=== PATIENT | female | born 1940 | race American Indian/Alaskan Native ===

== ENCOUNTER 2021-10-21 19:28 | Inpatient (IN) | payer MEDICARE ==
[2021-10-21] MEDS ORDERED: EPINEPHrine 1 MG/1 ML 8 MG in SODIUM CHLORIDE 0.9% 250ML 242 ML IV ONE (19:57)
[2021-10-21] MEDS ORDERED: SODIUM CHLORIDE 0.9% 1000 ML 1,000 ML IV ONE ×2 (20:13→21:29)
--- NOTE | 2021-10-21 20:26 | Emergency Department Report ---
<JESSICA HARPER - Last Filed: 10/21/21 22:33> ED CPR HPI - General Stated Complaint: CARDIAC ARREST Time Seen by Provider: 10/21/21 20:13 - Related Data Home Medications Medication Instructions Recorded Confirmed Last Taken Atenolol 50 mg PO DAILY 04/25/15 04/25/15 05/19/15 Clonidine HCl 0.2 mg PO DAILY 04/25/15 04/25/15 05/19/15 Levothyroxine 50 mg PO DAILY 04/25/15 04/25/15 05/18/15 Pravastatin 40 mg PO DAILY 04/25/15 04/25/15 05/19/15 Valsartan/Hydrochlorothiazide 320 mg PO DAILY 04/25/15 04/25/15 05/19/15 Aspirin [Adult Low Dose Aspirin EC] 1 tab PO DAILY 05/19/15 05/19/15 05/19/15 Previous Rx's Medication Instructions Recorded Last Taken Type Fluticasone [Flonase] 1 spray NS QDAY #1 bottle 08/01/14 05/19/15 Rx Ondansetron [Zofran Odt] 4 mg PO Q6H PRN #15 tab.rapdis 08/01/14 Unknown Rx Allergies Allergy/AdvReac Type Severity Reaction Status Date / Time Penicillins AdvReac BROKE Verified 05/17/14 17:02 MOUTH OUT Sulfa (Sulfonamide AdvReac BROKE Verified 05/17/14 17:02 Antibiotics) MOUTH OUT ED Past Medical Hx - Medications Home Medications: Home Medications Medication Instructions Recorded Confirmed Last Taken Type Fluticasone [Flonase] 1 spray NS QDAY #1 bottle 08/01/14 04/25/15 05/19/15 Rx Ondansetron [Zofran Odt] 4 mg PO Q6H PRN #15 tab.rapdis 08/01/14 04/25/15 Unknown Rx Atenolol 50 mg PO DAILY 04/25/15 04/25/15 05/19/15 History Clonidine HCl 0.2 mg PO DAILY 04/25/15 04/25/15 05/19/15 History Levothyroxine 50 mg PO DAILY 04/25/15 04/25/15 05/18/15 History Pravastatin 40 mg PO DAILY 04/25/15 04/25/15 05/19/15 History Valsartan/Hydrochlorothiazide 320 mg PO DAILY 04/25/15 04/25/15 05/19/15 History Aspirin [Adult Low Dose Aspirin EC] 1 tab PO DAILY 05/19/15 05/19/15 05/19/15 History ED Medical Decision Making - Lab Data Result diagrams: 10/21/21 20:26 10/21/21 20:26 ED Disposition Clinical Impression: Cardiac arrest Bilateral pneumonia Qualifiers: Pneumonia type: due to unspecified organism Lung location: lower lobe of lung Qualified Code(s): J18.9 - Pneumonia, unspecified organism Disposition: ADMITTED INPATIENT Is pt being admited?: Yes Does the pt Need Aspirin: No Time of Disposition: 22:34 (Care transferred to hospitalist (Dr. Painting)) <TOMASA PETTY - Last Filed: 10/27/21 01:39> ED CPR HPI - General Source: family, police, EMS, old records reviewed Mode of arrival: Stretcher Limitations: Other (cardiac arrest) - History of Present Illness Initial Comments: 81 yo female with history of diabetes, [place], bronchitis, and metabolic acidosis presents in cardiac arrest with EMS. The rest happened approximately 30 minutes prior to arrival. According to the family, patient had been having nausea and vomiting since 11 AM, but denied any pain. At approximately 6 PM, patient collapsed. Upon EMS arrival, the patient was found to be in PEA arrest. Prior to arrival to the emergency department, the patient received 2 shocks, 3 doses of epinephrine, was intubated, and CPR initiated continued. Upon arrival, patient is in asystolic arrest, and ALS was continued, here. ED Review of Systems ROS: Stated complaint: CARDIAC ARREST Other details as noted in HPI Comment: Unobtainable due to pts medical conditions (cardiac arrest, ROSC was obtained from EMS, police and patient family) Constitutional: other (became unresponsive) ENT: denies: throat pain, congestion Cardiovascular: denies: chest pain Endocrine: no symptoms reported Gastrointestinal: nausea, vomiting Neurological: other (unresponsive) ED Past Medical Hx - Past Medical History Hx Hypertension: Yes (20yrs) Hx Arthritis: Yes Additional medical history: THYROID - Surgical History Additional Surgical History: HYSTERECTOMY. THYROID SURGERY - Social History Smoking Status: Never Smoker Substance Use Type: Prescribed, Other ED Physical Exam - General General appearance: obese, other (unresponsive) - Head Head exam: Present: atraumatic - Eye Eye exam: Present: other (fixed and dilate) - Neck Neck exam: Present: normal inspection, other (unable to fully assess) - Respiratory Respiratory exam: Present: other (patient intubated with a 6.5 et tubes, lungs sounds present r>l) - Cardiovascular Cardiovascular Exam: Present: other (pulseless, asystolic) - GI/Abdominal GI/Abdominal exam: Present: soft, other (unable to fully assess) - Extremities Exam Extremities exam: Present: pedal edema - Neurological Exam Neurological exam: Present: other (unable to fully assess) - Psychiatric Psychiatric exam: Present: other (unable to fully assess) ED Course Vital Signs 10/21/21 10/21/21 10/21/21 20:00 20:30 20:45 Pulse Rate 79 61 65 Respiratory 20 20 Rate Blood Pressure 85/47 62/31 O2 Sat by Pulse 100 99 99 Oximetry 10/21/21 10/21/21 10/21/21 20:55 21:00 21:15 Pulse Rate 66 66 64 Respiratory 7 L 7 L 7 L Rate Blood Pressure 66/33 69/35 82/39 O2 Sat by Pulse 100 100 100 Oximetry 10/21/21 10/21/21 10/21/21 21:30 21:32 21:45 Pulse Rate 65 66 Respiratory 20 20 Rate Blood Pressure 95/46 103/52 O2 Sat by Pulse 99 100 99 Oximetry 10/21/21 10/21/21 10/21/21 22:00 22:23 22:30 Pulse Rate 68 79 72 Respiratory 20 8 L 14 Rate Blood Pressure 100/50 98/52 110/60 O2 Sat by Pulse 99 97 98 Oximetry 10/21/21 10/21/21 10/21/21 22:45 23:00 23:15 Pulse Rate 74 76 76 Respiratory 20 21 20 Rate Blood Pressure 105/58 109/59 107/58 O2 Sat by Pulse 98 98 98 Oximetry 10/21/21 10/21/21 10/22/21 23:30 23:45 00:00 Pulse Rate 77 78 77 Respiratory 18 20 20 Rate Blood Pressure 109/58 108/62 112/65 O2 Sat by Pulse 96 96 96 Oximetry 10/22/21 10/22/21 10/22/21 00:04 00:15 00:30 Pulse Rate 77 83 80 Respiratory 21 20 Rate Blood Pressure 112/65 114/67 118/66 O2 Sat by Pulse 97 94 96 Oximetry 10/22/21 10/22/21 10/22/21 00:45 01:00 01:15 Pulse Rate 82 83 83 Respiratory 20 21 20 Rate Blood Pressure 117/66 116/67 104/58 O2 Sat by Pulse 96 97 97 Oximetry 10/22/21 01:30 Pulse Rate 82 Respiratory 19 Rate Blood Pressure 101/63 O2 Sat by Pulse 97 Oximetry - Reevaluation(s) Reevaluation #1: 10/21/21 21:12 approximately 5 minutes into the emergency department resuscitation, and after 1 round of epinephrine and sodium bicarb patient was noted to have return of circulation. However, her blood pressure was low, so I put in a emergent central line. Patient is not breathing on her own, but is maintaining a pulse, is on an epinephrine drip, and has a systolic blood pressure above 90. - Central Line Placement Right Femoral Consent Obtained: emergent situation Time Out Performed: Yes MD Prep: mask, gown, gloves Central Line Prep: Chlorhexidine scrub, sterile drapes applied Ultrasound Used for Placement: Yes Central Line Lumen Inserted: triple Reason for Insertion: Volume Resuscitation Bloods Obtained for Lab: Yes Central Line Position: good blood return, all ports aspirated, flus, sutured in place with 2-0 Dressing Applied: Tegaderm, sterile gauze/tape Patient Tolerated Procedure: well Complications: none ED Medical Decision Making - Lab Data Result diagrams: 10/22/21 12:30 10/22/21 03:39 Critical Care Time: Yes Critical care time in (mins) excluding proc time.: 40 Critical care attestation.: If time is entered above; I have spent that time in minutes in the direct care of this critically ill patient, excluding procedure time.
[2021-10-21 20:45] LABS: Basophils % (Auto) TNR % (0.0-1.8); Eosinophils % (Auto) TNR % (0.0-4.3); Hematocrit TNR % (30.3-42.9); Hemoglobin TNR gm/dl (10.1-14.3); Lymphocytes % (Auto) TNR % (13.4-35.0); Mean Corpuscular HGB Conc TNR % (30-34); Mean Corpuscular Volume TNR fl (79-97); Mean Platelet Volume TNR fl (6-12); Monocytes % (Auto) TNR % (0.0-7.3); Platelet Count TNR K/mm3 (140-440); Red Blood Count TNR M/mm3 (3.65-5.03); Red Cell Distribution Width TNR % (13.2-15.2)
[2021-10-21 20:46] LABS: Basophils # (Auto) TNR K/mm3 (0.0-0.1); Eosinophils # (Auto) TNR K/mm3 (0.0-0.4); Lymphocytes # (Auto) TNR K/mm3 (1.2-5.4); Monocytes # (Auto) TNR K/mm3 (0.0-0.8); Total Cells Counted TNR
[2021-10-21 20:47] LABS: Band Neutrophils # (Manual) TNR K/mm3; Basophils % (Manual) TNR % (0.0-1.8); Eosinophils % (Manual) TNR % (0.0-4.3); Hypersegmented Polys TNR; Monocytes % (Manual) TNR % (0.0-7.3); Myelocytes # (Manual) TNR K/mm3; Promyelocytes # (Manual) TNR K/mm3
--- NOTE | 2021-10-21 20:47 | XRay Report ---
CHEST 1 VIEW 10/21/2021 8:30 PM INDICATION / CLINICAL INFORMATION: Altered Mental Status. COMPARISON: One view of the chest from 05/19/2015. FINDINGS: SUPPORT DEVICES: An ET tube terminates 4.3 cm above the gracie. HEART / MEDIASTINUM: The cardiac silhouette is mildly enlarged. LUNGS / PLEURA: Airspace opacities are seen throughout the right lung as well as along the upper left lung. No significant pleural effusion. No pneumothorax. ADDITIONAL FINDINGS: No significant additional findings. IMPRESSION: 1. Suspected bilateral pneumonia. 2. Mild cardiomegaly. 3. Satisfactory positioning of ET tube. Signer Name: Kel Hair MD Signed: 10/21/2021 8:42 PM Workstation Name: [id number]
[2021-10-21 20:48] LABS: Anisocytosis TNR; Basophilic Stippling TNR; Bite Cells TNR; Burr Cells TNR; Cabot Rings TNR; Dimorphic RBC TNR; Dohle Bodies TNR; Giant Platelets TNR; Helmet Cells TNR; Hgb C Crystals TNR; Howell-Jolly Bodies TNR; Hypersegmented Neutrophils TNR; Hypochromasia TNR; Large Platelets TNR; Macrocytosis TNR; Nucleated Red Blood Cells TNR % (0.0-0.9); Ovalocytes TNR; Pappenheimer Bodies TNR; Platelet Clumps TNR; Platelet Estimate TNR; Platelet Morphology TNR; Platelet Satelitosis TNR; Poikilocytosis TNR; RBC Morphology TNR; Schistocytes TNR; Sickle Cells TNR; Smudge Cells TNR; Spherocytes TNR; Stomatocytes TNR; Target Cells TNR; Tear Drop Cells TNR; Toxic Granulation TNR; Toxic Vacuolation TNR
[2021-10-21 20:49] LABS: Auer Rods TNR; Crenated RBC TNR; Rouleaux TNR
[2021-10-21 21:01] LABS: Albumin 2.9 g/dL (3.9-5); Calcium 8.4 mg/dL (8.4-10.2)
[2021-10-21 21:12] LABS: Hematocrit 30.5 % (30.3-42.9); Mean Corpuscular HGB Conc 33 % (30-34); Mean Corpuscular Volume 83 fl (79-97); Red Blood Count 3.69 M/mm3 (3.65-5.03)
[2021-10-21 21:17] LABS: ABG Base Excess -2.1 mmol/L (-2.0-3.0); ABG HCO3 22.5 mmol/L (20.0-26.0); ABG Methemoglobin 0.4 % (0.0-1.5); ABG Oxygen Saturation 99.1 % (95.0-99.0); ABG PCO2 37.7 mm Hg; ABG PH 7.393 pH Units (7.350-7.450); ABG PO2 172.2 mm Hg (80.0-90.0)
[2021-10-21 21:23] LABS: Platelet Count 280 K/mm3 (140-440)
[2021-10-21] MEDS ORDERED: MIDAZOLAM 2 MG/2 ML INJ IV PRN (21:24)
[2021-10-21 21:26] LABS: INR 0.95 (0.87-1.13)
[2021-10-21] MEDS ORDERED: CLINDAMYCIN 600 MG/50 mL 600 MG/50 ML BAG IV ONE (21:29)
[2021-10-21] MEDS ORDERED: cefTRIAXone/NS 1 GM/50 ML 1 GM/50 ML BAG IV ONE (21:29)
[2021-10-21] MEDS ORDERED: metroNIDAZOLE/NS 500 MG/100 ML 500 MG/100 ML BAG IV ONE (21:33)
[2021-10-21 21:59] LABS: Partial Thromboplastin Time 23.6 Sec. (24.2-36.6)
[2021-10-21] MEDS ORDERED: MIDAZOLAM/NS Drip 100mg/100ml 100 MG/100 ML BAG IV SCH (22:00)
[2021-10-21 22:02] LABS: Anisocytosis 1+; Band Neutrophils # (Manual) 0.4 K/mm3; Basophils % (Manual) 0 % (0.0-1.8); Eosinophils % (Manual) 0 % (0.0-4.3); Hypochromasia 1+; Platelet Estimate Consistent w Auto; Total Cells Counted 100
[2021-10-21 22:17] LABS: Chol/HDL Ratio 4.13 %
--- NOTE | 2021-10-21 22:28 | Cat Scan Report ---
CT ABDOMEN WITHOUT CONTRAST INDICATION / CLINICAL INFORMATION: vomiting prior to cardiac arrest. TECHNIQUE: Axial CT images were obtained through the abdomen without contrast. All CT scans at this [facility] emergency department are performed using CT dose reduction for ALARA by means of automated exposure control. COMPARISON: None available. FINDINGS: LOWER CHEST: Areas of consolidation are seen bilaterally along the lower lobes with ground glass opac ities also seen along the right middle lobe. No other significant abnormality. LIVER: No significant abnormality. GALLBLADDER: No significant abnormality. BILE DUCTS: No significant abnormality. PANCREAS: No significant abnormality. SPLEEN: No significant abnormality. ADRENALS: There is an indeterminate hypodense left adrenal nodule measuring up to 1.5 cm area of no s ignificant abnormality of the right adrenal gland. RIGHT KIDNEY / URETER: No significant abnormality. LEFT KIDNEY / URETER: A posterior upper pole left renal hypodensity, possibly representing a cyst, me asures 1.9 cm. Another probable cyst is seen along the lower pole. No other significant abnormality. STOMACH / SMALL BOWEL: No significant abnormality. COLON: No significant abnormality. APPENDIX: Not seen. PERITONEUM: No free fluid. No free air. No fluid collection. LYMPH NODES: No significant adenopathy. AORTA / ARTERIES: There is moderate generalized atherosclerosis without other significant abnormaliti es. IVC / VEINS: No significant abnormality. ADDITIONAL FINDINGS: None. SKELETAL SYSTEM: No acute findings. There is mild spondylosis. IMPRESSION: 1. Suspected bilateral pneumonia without other acute findings. 2. Indeterminate left adrenal nodule may be further evaluated by a CT abdomen with and without contra st (adrenal protocol) or an MR abdomen without contrast when the patient's clinical condition allows. 3. Additional findings as above. Signer Name: Kel Hair MD Signed: 10/21/2021 10:24 PM Workstation Name: [id number]
--- NOTE | 2021-10-21 22:29 | Cat Scan Report ---
CT HEAD WITHOUT CONTRAST INDICATION / CLINICAL INFORMATION: Altered Mental Status. TECHNIQUE: All CT scans at this location are performed using CT dose reduction for ALARA by means of automated exposure control. COMPARISON: None available. FINDINGS: BRAIN PARENCHYMA: No acute intracranial hemorrhage. No evidence of recent infarct. No mass effect or midline shift. VENTRICULAR SYSTEM/EXTRA-AXIAL SPACES: Ventricles are normal for age. No extra-axial fluid collection . ORBITS: Normal as visualized. SKELETAL SYSTEM/SOFT TISSUES: Normal bones and soft tissues. PARANASAL SINUSES/MASTOID AIR CELLS: No significant abnormality. ADDITIONAL FINDINGS: None. IMPRESSION: 1. No acute intracranial abnormality. Signer Name: Kel Hair MD Signed: 10/21/2021 10:25 PM Workstation Name: [id number]
[2021-10-21] MEDS ORDERED: traMADol 50 MG TAB PO PRN (22:57)
[2021-10-21] MEDS ORDERED: MORPHINE 4 MG/1 ML INJ IV PRN (22:57)
[2021-10-21] MEDS ORDERED: MORPHINE 2 MG/1 ML INJ IV PRN (22:57)
[2021-10-21] MEDS ORDERED: ONDANSETRON 4 MG/2 ML INJ IV PRN (22:57)
[2021-10-21] MEDS ORDERED: NITROGLYCERIN 0.4 MG TAB SUBL SL PRN (22:57)
[2021-10-21] MEDS ORDERED: ACETAMINOPHEN 325 MG TAB PO PRN ×2 (22:57)
--- NOTE | 2021-10-21 23:09 | History and Physical Report ---
History of Present Illness Date of examination: 10/21/21 Date of admission: 10/21/21 Chief complaint: Cardiac arrest History of present illness: 81 yo female with history of diabetes, [place], bronchitis, and metabolic acidosis presents in cardiac arrest with EMS. The rest happened approximately 30 minutes prior to arrival. According to the family, patient had been having nausea and vomiting since 11 AM, but denied any pain. At approximately 6 PM, patient collapsed. Upon EMS arrival, the patient was found to be in PEA arrest. Prior to arrival to the emergency department, the patient received 2 shocks, 3 doses of epinephrine, was intubated, and CPR initiated continued. Upon arrival, patient is in asystolic arrest, and ALS was continued, here,approximately 5 minutes into the emergency department resuscitation, and after 1 round of epinephrine and sodium bicarb patient was noted to have return of circulation. In the emergency room patient is found to have lactic acid of 8.60, troponin of 0.201, WBCs 19.0 and chest x-ray shows bilateral pneumonia Past History Past Medical History: arthritis, hypertension, other (Thyroid) Past Surgical History: Other (HYSTERECTOMY. THYROID SURGERY) Social history: no significant social history Family history: hypertension Medications and Allergies Allergies Allergy/AdvReac Type Severity Reaction Status Date / Time Penicillins AdvReac BROKE Verified 05/17/14 17:02 MOUTH OUT Sulfa (Sulfonamide AdvReac BROKE Verified 05/17/14 17:02 Antibiotics) MOUTH OUT Home Medications Medication Instructions Recorded Confirmed Last Taken Type Fluticasone [Flonase] 1 spray NS QDAY #1 bottle 08/01/14 04/25/15 05/19/15 Rx Ondansetron [Zofran Odt] 4 mg PO Q6H PRN #15 tab.rapdis 08/01/14 04/25/15 Unknown Rx Atenolol 50 mg PO DAILY 04/25/15 04/25/15 05/19/15 History Clonidine HCl 0.2 mg PO DAILY 04/25/15 04/25/15 05/19/15 History Levothyroxine 50 mg PO DAILY 04/25/15 04/25/15 05/18/15 History Pravastatin 40 mg PO DAILY 04/25/15 04/25/15 05/19/15 History Valsartan/Hydrochlorothiazide 320 mg PO DAILY 04/25/15 04/25/15 05/19/15 History Aspirin [Adult Low Dose Aspirin EC] 1 tab PO DAILY 05/19/15 05/19/15 05/19/15 History Active Meds: Active Medications Acetaminophen (Acetaminophen 325 Mg Tab) 650 mg PO Q4H PRN PRN Reason: Pain MILD(1-3)/Fever >100.5/[place] Acetaminophen (Acetaminophen 325 Mg Tab) 650 mg PO Q6H PRN PRN Reason: Pain, Mild (1-3) Aspirin (Aspirin Ec 81 Mg Tab) mg PO DAILY [facility] Atorvastatin Calcium (Atorvastatin 40 Mg Tab) 40 mg PO QHS [facility] Famotidine (Famotidine 20 Mg/2 Ml Inj) 20 mg IV BID [facility] Fluticasone Propionate (Fluticasone Propionate Nasal [place] 16 Gm) 50 mcg NS QDAY MATT Epinephrine 8 mg/ Sodium (Chloride) 250 mls @ 3.75 mls/hr IV TITR ONE; Protocol Stop: 10/24/21 14:36 Last Admin: 10/21/21 20:59 Dose: 5 mcg/min, 9.375 mls/hr MIDAZOLAM/NS Drip 100mg/100ml (Midazolam/Ns Drip 100mg/100ml) 100 mg in 100 mls @ 1 mls/hr IV TITR MATT; Protocol Sodium Chloride (Nacl 0.9% 1000 Ml) 1,000 mls @ 100 mls/hr IV DIRECT MATT Levofloxacin/Dextrose (Levaquin 750mg/150ml) 750 mg in 150 mls @ 100 mls/hr IV Q24H MATT; Protocol Midazolam HCl (Midazolam 2 Mg/2 Ml Inj) 2 mg IV Q10MIN PRN PRN Reason: Sedation Miscellaneous Medication (Atenolol) 50 mg PO DAILY [facility] Miscellaneous Medication (Levothyroxine) 50 mg PO DAILY [facility] Miscellaneous Medication (Valsartan/Hydrochlorothiazide) 320 mg PO DAILY [facility] Morphine Sulfate (Morphine 2 Mg/1 Ml Inj) 2 mg IV Q4H PRN PRN Reason: Pain, Moderate (4-6) Morphine Sulfate (Morphine 4 Mg/1 Ml Inj) 4 mg IV Q4H PRN PRN Reason: Pain , Severe (7-10) Nitroglycerin (Nitroglycerin 0.4 Mg Tab Subl) 0.4 mg SL Q5M PRN PRN Reason: Chest Pain Ondansetron HCl (Ondansetron 4 Mg/2 Ml Inj) 4 mg IV Q8H PRN PRN Reason: Nausea And Vomiting Sodium Chloride (Sodium Chloride 0.9% 10 Ml Flush Syringe) 10 ml IV BID MATT Sodium Chloride (Sodium Chloride 0.9% 10 Ml Flush Syringe) 10 ml IV PRN PRN PRN Reason: LINE FLUSH Sodium Chloride (Sodium Chloride 0.9% 10 Ml Flush Syringe) 10 ml IV PRN PRN PRN Reason: LINE FLUSH Tramadol HCl (Tramadol 50 Mg Tab) 50 mg PO Q6H PRN PRN Reason: Pain, Moderate (4-6) Review of Systems All systems: negative Constitutional: other (Cardiac arrest) Exam - Constitutional Vitals: Temp Pulse Resp BP Pulse Ox 65 20 62/31 100 10/21/21 20:45 10/21/21 20:45 10/21/21 20:45 10/21/21 21:32 General appearance: Present: severe distress, well-nourished - EENT Eyes: Present: PERRL ENT: hearing intact, clear oral mucosa - Neck Neck: Present: supple, normal ROM - Respiratory Respiratory effort: normal Respiratory: bilateral: CTA - Cardiovascular Heart Sounds: Present: S1 & S2. Absent: rub, click - Extremities Extremities: pulses symmetrical, No edema Peripheral Pulses: within normal limits - Abdominal General gastrointestinal: Present: soft, non-tender, non-distended, normal bowel sounds Female genitourinary: Present: normal - Integumentary Integumentary: Present: clear, warm, dry - Musculoskeletal Musculoskeletal: gait normal, strength equal bilaterally - Psychiatric Psychiatric: appropriate mood/affect, intact judgment & insight - Neurologic Neurologic: CNII-XII intact, moves all extremities HEART Score - HEART Score Troponin: Troponin T 0.201 ng/mL (0.00-0.029) H* 10/21/21 20:26 Results - Labs CBC & Chem 7: 10/21/21 20:26 10/21/21 20:26 Labs: Laboratory Last Values WBC 19.0 K/mm3 (4.5-11.0) H 10/21/21 20:26 WBC TNR 10/21/21 20:26 RBC 3.69 M/mm3 (3.65-5.03) 10/21/21 20:26 RBC TNR 10/21/21 20:26 Hgb 10.0 gm/dl (10.1-14.3) L 10/21/21 20:26 Hgb TNR 10/21/21 20:26 Hct 30.5 % (30.3-42.9) 10/21/21 20:26 Hct TNR 10/21/21 20:26 MCV 83 fl (79-97) 10/21/21 20:26 MCV TNR 10/21/21 20:26 MCH 27 pg (28-32) L 10/21/21 20:26 MCH TNR 10/21/21 20:26 MCHC 33 % (30-34) 10/21/21 20:26 MCHC TNR 10/21/21 20:26 RDW 16.0 % (13.2-15.2) H 10/21/21 20:26 RDW TNR 10/21/21 20:26 Plt Count 280 K/mm3 (140-440) 10/21/21 20:26 Plt Count TNR 10/21/21 20:26 Lymph % (Auto) TNR 10/21/21 20:26 [place] % (Auto) TNR 10/21/21 20:26 Eos % (Auto) TNR 10/21/21 20:26 Baso % (Auto) TNR 10/21/21 20:26 Lymph # (Auto) TNR 10/21/21 20:26 [place] # (Auto) TNR 10/21/21 20:26 Eos # (Auto) TNR 10/21/21 20:26 Baso # (Auto) TNR 10/21/21 20:26 Add Manual Diff Complete 10/21/21 20:26 Add Manual Diff Complete 10/21/21 20:26 Total Counted 100 10/21/21 20:26 Total Counted TNR 10/21/21 20:26 Seg Neutrophils % Boring Machine Feeder 10/21/21 20:26 Seg Neutrophils % TNR 10/21/21 20:26 Seg Neuts % (Manual) 93.0 % (40.0-70.0) H 10/21/21 20:26 Seg Neuts % (Manual) TNR 10/21/21 20:26 Band Neutrophils % 2.0 % 10/21/21 20:26 Band Neutrophils % TNR 10/21/21 20:26 Lymphocytes % (Manual) 3.0 % (13.4-35.0) L 10/21/21 20:26 Lymphocytes % (Manual) TNR 10/21/21 20:26 Reactive Lymphs % (Man) 0 % 10/21/21 20: Reactive Lymphs % (Man) TNR 10/21/21 20:26 Monocytes % (Manual) 2.0 % (0.0-7.3) 10/21/21 20: Monocytes % (Manual) TNR 10/21/21 20:26 Eosinophils % (Manual) 0 % (0.0-4.3) 10/21/21 20:26 Eosinophils % (Manual) TNR 10/21/21 20:26 Basophils % (Manual) 0 % (0.0-1.8) 10/21/21 20: Basophils % (Manual) TNR 10/21/21 20:26 Metamyelocytes % 0 % 10/21/21 20: Metamyelocytes % TNR 10/21/21 20: Myelocytes % 0 % 10/21/21 20: Myelocytes % TNR 10/21/21 20:26 Promyelocytes % 0 % 10/21/21 20:26 Promyelocytes % TNR 10/21/21 20:26 Blast Cells % 0 % 10/21/21 20: Blast Cells % TNR 10/21/21 20:26 Nucleated RBC % Not Reportable 10/21/21 20:26 Nucleated RBC % TNR 10/21/21 20:26 Seg Neutrophils # TNR 10/21/21 20:26 Seg Neutrophils # Man 17.7 K/mm3 (1.8-7.7) H 10/21/21 20:26 Seg Neutrophils # Man TNR 10/21/21 20:26 Band Neutrophils # 0.4 K/mm3 10/21/21 20:26 Band Neutrophils # TNR 10/21/21 20:26 Lymphocytes # (Manual) 0.6 K/mm3 (1.2-5.4) L 10/21/21 20: Lymphocytes # (Manual) TNR 10/21/21 20:26 Abs React Lymphs (Man) 0.0 K/mm3 10/21/21 20: Abs React Lymphs (Man) TNR 10/21/21 20:26 Monocytes # (Manual) 0.4 K/mm3 (0.0-0.8) 10/21/21 20:26 Monocytes # (Manual) TNR 10/21/21 20:26 Eosinophils # (Manual) 0.0 K/mm3 (0.0-0.4) 10/21/21 20:26 Eosinophils # (Manual) TNR 10/21/21 20:26 Basophils # (Manual) 0.0 K/mm3 (0.0-0.1) 10/21/21 20:26 Basophils # (Manual) TNR 10/21/21 20:26 Metamyelocytes # 0.0 K/mm3 10/21/21 20:26 Metamyelocytes # TNR 10/21/21 20:26 Myelocytes # 0.0 K/mm3 10/21/21 20:26 Myelocytes # TNR 10/21/21 20:26 Promyelocytes # 0.0 K/mm3 10/21/21 20:26 Promyelocytes # TNR 10/21/21 20:26 Blast Cells # 0.0 K/mm3 10/21/21 20:26 Blast Cells # TNR 10/21/21 20:26 WBC Morphology Not Reportable 10/21/21 20:26 WBC Morphology TNR 10/21/21 20:26 Hypersegmented Neuts Not Reportable 10/21/21 20:26 Hypersegmented Neuts TNR 10/21/21 20:26 Hyposegmented Neuts Not Reportable 10/21/21 20:26 Hyposegmented Neuts TNR 10/21/21 20:26 Hypogranular Neuts Not Reportable 10/21/21 20:26 Hypogranular Neuts TNR 10/21/21 20:26 Hypersegmented Polys TNR 10/21/21 20:26 Smudge Cells Not Reportable 10/21/21 20:26 Smudge Cells TNR 10/21/21 20:26 Toxic Granulation Not Reportable 10/21/21 20:26 Toxic Granulation TNR 10/21/21 20:26 Toxic Vacuolation Not Reportable 10/21/21 20:26 Toxic Vacuolation TNR 10/21/21 20:26 Dohle Bodies Not Reportable 10/21/21 20:26 Dohle Bodies TNR 10/21/21 20:26 Pelger-Huet Anomaly Not Reportable 10/21/21 20:26 Pelger-Huet Anomaly TNR 10/21/21 20:26 Lilliam Rods Not Reportable 10/21/21 20:26 Lilliam Rods TNR 10/21/21 20:26 Platelet Estimate Consistent w auto 10/21/21 20:26 Platelet Estimate TNR 10/21/21 20:26 Clumped Platelets Not Reportable 10/21/21 20:26 Clumped Platelets TNR 10/21/21 20:26 Plt Clumps, EDTA Not Reportable 10/21/21 20:26 Plt Clumps, EDTA TNR 10/21/21 20:26 Large Platelets Not Reportable 10/21/21 20:26 Large Platelets TNR 10/21/21 20:26 Giant Platelets Not Reportable 10/21/21 20:26 Giant Platelets TNR 10/21/21 20:26 Platelet Satelliting Not Reportable 10/21/21 20:26 Platelet Satelliting TNR 10/21/21 20:26 Plt Morphology Comment Not Reportable 10/21/21 20:26 Plt Morphology Comment TNR 10/21/21 20:26 RBC Morphology Not Reportable 10/21/21 20:26 RBC Morphology TNR 10/21/21 20:26 Dimorphic RBCs Not Reportable 10/21/21 20:26 Dimorphic RBCs TNR 10/21/21 20:26 Polychromasia Not Reportable 10/21/21 20:26 Polychromasia TNR 10/21/21 20:26 Hypochromasia 1+ 10/21/21 20:26 Hypochromasia TNR 10/21/21 20:26 Poikilocytosis Not Reportable 10/21/21 20:26 Poikilocytosis TNR 10/21/21 20:26 Basophilic Stippling TNR 10/21/21 20:26 Anisocytosis 1+ 10/21/21 20:26 Anisocytosis TNR 10/21/21 20:26 Microcytosis 1+ 10/21/21 20:26 Microcytosis TNR 10/21/21 20:26 Macrocytosis Not Reportable 10/21/21 20:26 Macrocytosis TNR 10/21/21 20:26 Spherocytes Not Reportable 10/21/21 20:26 Spherocytes TNR 10/21/21 20:26 Pappenheimer Bodies Not Reportable 10/21/21 20:26 Pappenheimer Bodies TNR 10/21/21 20:26 Sickle Cells Not Reportable 10/21/21 20:26 Sickle Cells TNR 10/21/21 20:26 Target Cells Not Reportable 10/21/21 20:26 Target Cells TNR 10/21/21 20:26 Tear Drop Cells Not Reportable 10/21/21 20:26 Tear Drop Cells TNR 10/21/21 20:26 Ovalocytes Not Reportable 10/21/21 20:26 Ovalocytes TNR 10/21/21 20:26 Stomatocytes TNR 10/21/21 20:26 Helmet Cells Not Reportable 10/21/21 20:26 Helmet Cells TNR 10/21/21 20:26 [place] Bodies Not Reportable 10/21/21 20:26 [place] Bodies TNR 10/21/21 20:26 [place] Rings Not Reportable 10/21/21 20:26 [place] Rings TNR 10/21/21 20:26 Jack Cells Not Reportable 10/21/21 20:26 Jack Cells TNR 10/21/21 20:26 Bite Cells Not Reportable 10/21/21 20:26 Bite Cells TNR 10/21/21 20:26 Crenated Cell Not Reportable 10/21/21 20:26 Crenated Cell TNR 10/21/21 20:26 Elliptocytes Not Reportable 10/21/21 20:26 Elliptocytes TNR 10/21/21 20:26 Acanthocytes (Spur) Not Reportable 10/21/21 20:26 Acanthocytes (Spur) TNR 10/21/21 20:26 Rouleaux Not Reportable 10/21/21 20:26 Rouleaux TNR 10/21/21 20:26 Hemoglobin C Crystals Not Reportable 10/21/21 20:26 Hemoglobin C Crystals TNR 10/21/21 20:26 Schistocytes Not Reportable 10/21/21 20:26 Schistocytes TNR 10/21/21 20:26 Malaria parasites Not Reportable 10/21/21 20:26 Malaria parasites TNR 10/21/21 20:26 Mario Bodies Not Reportable 10/21/21 20:26 Mario Bodies TNR 10/21/21 20:26 Hem Pathologist Commnt No 10/21/21 20: Hem Pathologist Commnt TNR 10/21/21 20: PT 14.0 Sec. (12.2-14.9) 10/21/21 20: INR 0.95 (0.87-1.13) 10/21/21 20: APTT 23.6 Sec. (24.2-36.6) L 10/21/21 20:26 ABG pH 7.393 pH Units (7.350-7.450) 10/21/21 21:00 ABG pCO2 37.7 mm Hg 10/21/21 21:00 ABG pO2 172.2 mm Hg (80.0-90.0) H 10/21/21 21:00 ABG HCO3 22.5 mmol/L (20.0-26.0) 10/21/21 21:00 ABG O2 Saturation 99.1 % (95.0-99.0) H 10/21/21 21:00 ABG O2 Content 14.3 (0.0-44) 10/21/21 21:00 ABG Base Excess -2.1 mmol/L (-2.0-3.0) L 10/21/21 21:00 ABG Hemoglobin 10.2 gm/dl (12.0-16.0) L 10/21/21 21:00 ABG Carboxyhemoglobin 1.3 % (0.0-5.0) 10/21/21 21:00 ABG Methemoglobin 0.4 % (0.0-1.5) 10/21/21 21:00 Oxyhemoglobin 97.4 % (95.0-99.0) 10/21/21 21:00 FiO2 100 % 10/21/21 21:00 Sodium 148 mmol/L (137-145) H 10/21/21 20: Potassium 4.3 mmol/L (3.6-5.0) 10/21/21 20: Chloride 101.3 mmol/L (98-107) 10/21/21 20: Carbon Dioxide 18 mmol/L (22-30) L 10/21/21: Anion Gap 33 mmol/L 10/21/21 20: BUN 15 mg/dL (7-17) 10/21/21 20: Creatinine 1.5 mg/dL (0.6-1.2) H 10/21/21 20:26 Estimated GFR 40 ml/min 10/21/21 20:26 BUN/Creatinine Ratio 10 % 10/21/21 20:26 Glucose 310 mg/dL (65-100) H 10/21/21 20:26 Lactic Acid 8.60 mmol/L (0.7-2.0) H* 10/21/21 20:26 Calcium 8.4 mg/dL (8.4-10.2) 10/21/21 20:26 Total Bilirubin 0.20 mg/dL (0.1-1.2) 10/21/21 20:26 AST 295 units/L (5-40) H 10/21/21 20:26 ALT 223 units/L (7-56) H 10/21/21 20:26 Alkaline Phosphatase 88 units/L (35-129) 10/21/21 20:26 Troponin T 0.201 ng/mL (0.00-0.029) H* 10/21/21 20:26 Total Protein 6.1 g/dL (6.3-8.2) L 10/21/21 20:26 Albumin 2.9 g/dL (3.9-5) L 10/21/21 20:26 Albumin/Globulin Ratio 0.9 % 10/21/21 20:26 Triglycerides 104 mg/dL (2-149) 10/21/21 20:26 Cholesterol 178 mg/dL (50-199) 10/21/21 20:26 LDL Cholesterol Direct 120 mg/dL (50-130) 10/21/21 20:26 HDL Cholesterol 43 mg/dL (40-59) 10/21/21 20:26 Cholesterol/HDL Ratio 4.13 % 10/21/21 20:26 Blood Type A NEGATIVE 10/21/21 20:26 Antibody Screen Negative 10/21/21 20:26 - Imaging and Cardiology Chest x-ray: report reviewed CT Scan - head: report reviewed Assessment and Plan VTE prophylaxis?: Mechanical Plan of care discussed with patient/family: Yes - Patient Problems (1) Cardiac arrest Current Visit: Yes Status: Acute Plan to address problem: Admit the patient to the ICU. Aspirin 81 mg p.o. daily. Lipitor 40 mg p.o. daily. Atenolol 50 mg p.o. daily. Serial cardiac enzymes. Echocardiogram. Cardiology evaluation. Critical care evaluation (2) Bilateral pneumonia Current Visit: Yes Status: Acute Qualifiers: Pneumonia type: due to unspecified organism Lung location: lower lobe of lung Qualified Code(s): J18.9 - Pneumonia, unspecified organism Plan to address problem: Levaquin 750 mg IV daily. Patient already get clindamycin Rocephin and Flagyl in the emergency room. Due to the blood culture and sputum culture. Will consult critical care evaluation. Recheck CBC in the morning (3) Hypertension Current Visit: Yes Status: Acute Plan to address problem: At around 50 mg p.o. daily. We will continue the home medication we will monitor the blood pressure closely (4) Metabolic acidosis Current Visit: Yes Status: Acute Plan to address problem: Levaquin 750 mg IV daily. Normal saline at the rate of 100 cc/h. Recheck the lactic acid. Blood culture sputum culture (5) Elevated troponin Current Visit: Yes Status: Acute Plan to address problem: Aspirin 81 mg p.o. daily. Lipitor 40 mg p.o. daily. Atenolol 50 mg p.o. daily. Serial cardiac enzymes. Echocardiogram. Cardiology evaluation. Critical care evaluation (6) Acute respiratory failure Current Visit: Yes Status: Acute Plan to address problem: Patient is a status post intubation. DuoNeb by nebulizer every 4 hours. Albuterol via nebulizer every 4 hours as needed. Critical care evaluation (7) DVT prophylaxis Current Visit: Yes Status: Acute Plan to address problem: Heparin 5000 units subcu every 12 hours for DVT prophylaxis. Pepcid 20 mg IV every 12 hours for GI prophylaxis. Patient is a full code
[2021-10-22] MEDS: SODIUM CHLORIDE 0.9% 1000 ML 1,000 ML IV SCH ×2 (02:51→10:49)
[2021-10-22 03:53] LABS: Bacteria,Urine 2+ /HPF (Negative); Mucus,Urine FEW /HPF
[2021-10-22 03:58] LABS: Color,Urine Yellow (Yellow)
[2021-10-22 03:59] LABS: Bilirubin,Urine Negative (Negative); Blood,Urine Large (Negative); PH,Urine 8.5 (5.0-7.0); Urobilinogen,Urine < 2.0 mg/dL (<2.0)
[2021-10-22 04:36] LABS: Basophils % (Auto) 0.1 % (0.0-1.8); Eosinophils % (Auto) 0.1 % (0.0-4.3); Hematocrit 30.8 % (30.3-42.9); Hemoglobin 10.5 gm/dl (10.1-14.3); Lymphocytes # (Auto) 1.2 K/mm3 (1.2-5.4); Lymphocytes % (Auto) 6.8 % (13.4-35.0); Mean Corpuscular HGB Conc 34 % (30-34); Mean Corpuscular Volume 81 fl (79-97); Monocytes % (Auto) 5.7 % (0.0-7.3); Platelet Count 276 K/mm3 (140-440); Red Cell Distribution Width 15.9 % (13.2-15.2)
[2021-10-22 04:47] LABS: INR 1.06 (0.87-1.13)
[2021-10-22 04:59] LABS: Albumin 3.2 g/dL (3.9-5); Calcium 7.8 mg/dL (8.4-10.2)
[2021-10-22] MEDS: INSULIN LISPRO 100 UNIT/ML SUB-Q SCH ×2 (05:14→13:29)
[2021-10-22] MEDS ORDERED: LEVOTHYROXINE 50 MCG TAB PO SCH (06:00)
--- NOTE | 2021-10-22 06:39 | XRay Report ---
ABDOMEN 1 VIEW INDICATION / CLINICAL INFORMATION: og tube. COMPARISON: CT from 10/21/2021. FINDINGS: Enteric catheter tip projects over the stomach. The side-port is located past the GE juncti on. Bibasilar airspace disease appears similar. Signer Name: Inocencio Townsend MD Signed: 10/22/2021 6:34 AM Workstation Name: [id number]
[2021-10-22] MEDS ORDERED: POTASSIUM CHLORIDE 20 MEQ PACKET FEEDTUBE SCH (08:30)
--- NOTE | 2021-10-22 09:48 | Consultation ---
History of Present Illness Consult date: 10/22/21 Requesting physician: JACOB BOOGIE Reason for consult: other (out of hospital cardiac arrest) History of present illness: 81 y/o female with out of hospital cardiac arrest. coding for 30 minutes prior to arrival in ED. Per documentation was in asystole upon arrival. Unresponsive, not on sedation but on epi drip at 5. Past History Past Medical History: arthritis, hypertension, other (Thyroid) Past Surgical History: Other (HYSTERECTOMY. THYROID SURGERY) Social history: no significant social history Family history: hypertension Medications and Allergies Allergies Allergy/AdvReac Type Severity Reaction Status Date / Time Penicillins AdvReac BROKE Verified 05/17/14 17:02 MOUTH OUT Sulfa (Sulfonamide AdvReac BROKE Verified 05/17/14 17:02 Antibiotics) MOUTH OUT Home Medications Medication Instructions Recorded Confirmed Last Taken Type Fluticasone [Flonase] 1 spray NS QDAY #1 bottle 08/01/14 04/25/15 05/19/15 Rx Ondansetron [Zofran Odt] 4 mg PO Q6H PRN #15 tab.rapdis 08/01/14 04/25/15 Un known Rx Atenolol 50 mg PO DAILY 04/25/15 04/25/15 05/19/15 History Clonidine HCl 0.2 mg PO DAILY 04/25/15 04/25/15 05/19/15 History Levothyroxine 50 mg PO DAILY 04/25/15 04/25/15 05/18/15 History Pravastatin 40 mg PO DAILY 04/25/15 04/25/15 05/19/15 History Valsartan/Hydrochlorothiazide 320 mg PO DAILY 04/25/15 04/25/15 05/19/15 History Aspirin [Adult Low Dose Aspirin EC] 1 tab PO DAILY 05/19/15 05/19/15 05/19/15 History Active Meds: Active Medications Acetaminophen (Acetaminophen 325 Mg Tab) 650 mg PO Q4H PRN PRN Reason: Pain MILD(1-3)/Fever >100.5/[place] Aspirin (Aspirin Ec 81 Mg Tab) 81 mg PO DAILY [facility] Last Admin: 10/22/21 09:14 Dose: 81 mg Famotidine (Famotidine 20 Mg/2 Ml Inj) 20 mg IV DAILY [facility] Last Admin: 10/22/21 09:14 Dose: 20 mg Fluticasone Propionate (Fluticasone Propionate Nasal [place] 16 Gm) 50 mcg NS QDAY [facility] Sodium Chloride (Nacl 0.9% 1000 Ml) 1,000 mls @ 100 mls/hr IV DIRECT MATT Last Admin: 10/22/21 02:51 Dose: 100 mls/hr Levofloxacin/Dextrose (Levaquin 750mg/150ml) 750 mg in 150 mls @ 100 mls/hr IV Q48H [facility]; Protocol Last Admin: 10/22/21 02:58 Dose: 100 mls/hr Epinephrine 8 mg/ Sodium (Chloride) 250 mls @ 3.75 mls/hr IV TITR MATT; Protocol Insulin Human Lispro (Insulin Lispro 100 Unit/Ml) 0 unit SUB-Q Q6HR [facility]; Protocol Last Admin: 10/22/21 05:14 Dose: 3 unit Levothyroxine Sodium (Levothyroxine 50 Mcg Tab) 50 mcg PO DAILY@0600 [facility] Last Admin: 10/22/21 05:15 Dose: Not Given Ondansetron HCl (Ondansetron 4 Mg/2 Ml Inj) 4 mg IV Q8H PRN PRN Reason: Nausea And Vomiting Potassium Chloride (Potassium Chloride 20 Meq Packet) 40 meq FEEDTUBE ONCE@0830 [facility] Stop: 10/22/21 12:30 Last Admin: 10/22/21 09:14 Dose: 40 meq Sodium Chloride (Sodium Chloride 0.9% 10 Ml Flush Syringe) 10 ml IV BID [facility] Last Admin: 10/22/21 09:14 Dose: 10 ml Sodium Chloride (Sodium Chloride 0.9% 10 Ml Flush Syringe) 10 ml IV PRN PRN PRN Reason: LINE FLUSH Tramadol HCl (Tramadol 50 Mg Tab) 50 mg PO Q6H PRN PRN Reason: Pain, Moderate (4-6) Review of Systems ROS unobtainable: due to endotracheal tube, due to mental status Physical Examination Vital signs: Vital Signs Pulse BP Pulse Ox 79 85/47 100 10/21/21 20:00 10/21/21 20:00 10/21/21 20:00 Results - Laboratory Findings CBC and BMP: 10/22/21 04:27 10/22/21 03:39 ABG ABG pH 7.393 pH Units (7.350-7.450) 10/21/21 21:00 ABG pCO2 37.7 mm Hg 10/21/21 21:00 ABG pO2 172.2 mm Hg (80.0-90.0) H 10/21/21 21:00 ABG O2 Saturation 99.1 % (95.0-99.0) H 10/21/21 21:00 PT/INR, D-dimer PT 15.3 Sec. (12.2-14.9) H 10/22/21 04:27 INR 1.06 (0.87-1.13) 10/22/21 04:27 Abnormal lab findings: Abnormal Labs 10/21/21 10/21/21 10/21/21 20:26 20:26 20:26 WBC Hgb MCH RDW Lymph % (Auto) [place] # (Auto) Seg Neutrophils % Seg Neuts % (Manual) Lymphocytes % (Manual) Seg Neutrophils # Seg Neutrophils # Man Lymphocytes # (Manual) PT APTT 23.6 L ABG pO2 ABG O2 Saturation ABG Base Excess ABG Hemoglobin Sodium 148 H Potassium Carbon Dioxide 18 L BUN Creatinine 1.5 H Glucose 310 H Lactic Acid 8.60 H* Calcium AST 295 H ALT 223 H Troponin T 0.201 H* Total Protein 6.1 L Albumin 2.9 L Urine pH Urine Blood Urine WBC (Auto) 10/21/21 10/21/21 10/22/21 20:26 21:00 03:00 WBC 19.0 H Hgb 10.0 L MCH 27 L RDW 16.0 H Lymph % (Auto) [place] # (Auto) Seg Neutrophils % Seg Neuts % (Manual) 93.0 H Lymphocytes % (Manual) 3.0 L Seg Neutrophils # Seg Neutrophils # Man 17.7 H Lymphocytes # (Manual) 0.6 L PT APTT ABG pO2 172.2 H ABG O2 Saturation 99.1 H ABG Base Excess -2.1 L ABG Hemoglobin 10.2 L Sodium Potassium Carbon Dioxide BUN Creatinine Glucose Lactic Acid Calcium AST ALT Troponin T Total Protein Albumin Urine pH 8.5 H Urine Blood Large A Urine WBC (Auto) 49.0 H 10/22/21 10/22/21 10/22/21 03:39 04:27 04:27 WBC 18.2 H Hgb MCH RDW 15.9 H Lymph % (Auto) 6.8 L [place] # (Auto) 1.0 H Seg Neutrophils % 87.3 H Seg Neuts % (Manual) Lymphocytes % (Manual) Seg Neutrophils # 15.9 H Seg Neutrophils # Man Lymphocytes # (Manual) PT APTT ABG pO2 ABG O2 Saturation ABG Base Excess ABG Hemoglobin Sodium 146 H Potassium 3.4 L D Carbon Dioxide BUN 24 H Creatinine 1.9 H Glucose 219 H Lactic Acid 5.50 H* Calcium 7.8 L AST 679 H ALT 266 H Troponin T Total Protein Albumin 3.2 L Urine pH Urine Blood Urine WBC (Auto) 10/22/21 10/22/21 04:27 05:00 WBC Hgb MCH RDW Lymph % (Auto) Mcintosh # (Auto) Seg Neutrophils % Seg Neuts % (Manual) Lymphocytes % (Manual) Seg Neutrophils # Seg Neutrophils # Man Lymphocytes # (Manual) PT 15.3 H APTT ABG pO2 ABG O2 Saturation ABG Base Excess ABG Hemoglobin Sodium Potassium Carbon Dioxide BUN Creatinine Glucose Lactic Acid Calcium AST ALT Troponin T 10.320 H* D Total Protein Albumin Urine pH Urine Blood Urine WBC (Auto) Assessment and Plan 81 y/o female with out of hospital cardiac arrest and likely anoxic brain injury. 1. Will order levo and attempt to wean off epi drip. does not appear that any other pressors were attempted in the ED 2. Repeat head CT tomorrow, most likely patient encephalopathy is from anoxia given prolong down time. Ok with Neurology consult. 3. Wean pressors for maps >65 4. Very poor prognosis. no family currently at bedside. CCT 31 minutes.
[2021-10-22] MEDS ORDERED: EPINEPHrine 1 MG/1 ML 8 MG in SODIUM CHLORIDE 0.9% 250ML 242 ML IV SCH (10:00)
[2021-10-22] MEDS ORDERED: ATENOLOL 50 MG PO SCH (10:00)
[2021-10-22] MEDS ORDERED: atenoloL 50 MG TAB PO SCH (10:00)
[2021-10-22] MEDS ORDERED: FLUTICASONE PROPIONATE NASAL SPRAY 16 GM NS SCH (10:00)
[2021-10-22] MEDS ORDERED: HYDROCHLOROTHIAZIDE PO SCH (10:00)
[2021-10-22] MEDS ORDERED: LEVOTHYROXINE 50 MG PO SCH (10:00)
[2021-10-22] MEDS ORDERED: ASPIRIN EC 81 MG TAB PO SCH (10:00)
[2021-10-22] MEDS ORDERED: FAMOTIDINE 20 MG/2 ML INJ IV SCH ×2 (10:00)
[2021-10-22] MEDS ORDERED: VALSARTAN PO SCH (10:00)
[2021-10-22] MEDS ORDERED: NORepinephrine/NS 8 MG-250 ML 8 MG/250 ML INFUS..BTL IV SCH (10:30)
--- NOTE | 2021-10-22 11:15 | Electrocardiograph Report ---
[facility] Test Date: 2021-10-21 Test Time: 19:36:28 Pat Name: JACK NUNEZ Department: Room: A260 1 Gender: F Carcass Trimmer: ORQUIDEA : 1940 Requested By: TOMASA PETTY Order Number: [id number] Reading MD: Saw Oscar Measurements Intervals [place] Rate: 65 P: -41 VA: 161 QRS: -76 QRSD: 145 T: 90 QT: 430 QTc: 421 Interpretive Statements Sinus bradycardia Baseline artifacts noted. Multiple premature complexes, vent & supraven Nonspecific IVCD with LAD Left ventricular hypertrophy ST elevation secondary to LVH No previous ECG available for comparison Electronically Signed On 10-22-2021 11:14:51 EDT by Saw Oscar
--- NOTE | 2021-10-22 11:24 | Electrocardiograph Report ---
[facility] Test Date: 2021-10-22 Test Time: 07:30:30 Pat Name: JACK NUNEZ Department: Room: A260 1 Gender: F Superintendent Police: AMAYA : 1940 Requested By: JACOB BOOGIE Order Number: [id number] Reading MD: Saw Oscar Measurements Intervals [place] Rate: 88 P: 62 AL: 220 QRS: -44 QRSD: 78 T: 28 QT: 362 QTc: 439 Interpretive Statements Sinus rhythm Prolonged AL interval Left axis deviation Anterolateral infarct, acute Compared to ECG 10/21/2021 19:36:28 RIGHT BUNDLE BRANCH BLOCK is no longer present. First degree AV block now present Left-axis deviation now present Myocardial infarct finding now present Electronically Signed On 10-22-2021 11:23:47 EDT by Saw Oscar
[2021-10-22] MEDS ORDERED: HEPARIN 10,000 UNITS/10 ML VIAL IV PRN (12:22)
--- NOTE | 2021-10-22 12:30 | Event Note ---
Date: 10/22/21 1214 2nd cardiac arrest No pulse detected by RN in room, Aystole noted on monitor, CPR initiated. Patient received 1 mg epinephrine and at 2 min pulse check, pulse detected. Patient already intubated. Currently on Levo, NS and Heparin gtt started. Dr. Andrade, Dr. Baires and Scot Kolb, [employer] with [facility]. Family at bedside 1414 3rd Cardiac arrest Initial rhythm asystole, CPR initiated, ACLS initiated Patient received epinephrine x2 CODE STATUS changed to AND TOD 1418 Dr. Andrade at bedside
--- NOTE | 2021-10-22 12:55 | XRay Report ---
CHEST 1 VIEW 10/22/2021 11:44 AM INDICATION / CLINICAL INFORMATION: post cardiac arrest. COMPARISON: Yesterday FINDINGS: SUPPORT DEVICES: Endotracheal tube and nasogastric tube appear in good position. HEART / MEDIASTINUM: Stable cardiomegaly LUNGS / PLEURA: Bilateral lung opacities or congestive changes appear slightly improved, particularly in the right lung. No significant pleural fluid or pneumothorax. ADDITIONAL FINDINGS: No significant additional findings. IMPRESSION: 1. Mild improvement in the bilateral lung opacities or congestive changes. Signer Name: Lexx Vasques Jr, MD Signed: 10/22/2021 12:50 PM Workstation Name: [id number]
[2021-10-22] MEDS ORDERED: HEPARIN 10,000 UNITS/10 ML VIAL IV SCH (13:00)
[2021-10-22] MEDS ORDERED: HEPARIN/ 0.45% NACL DRIP 25,000 UNIT/500 ML BAG IV SCH (13:00)
[2021-10-22 13:19] LABS: Hematocrit 37.7 % (30.3-42.9); Hemoglobin 13.3 gm/dl (10.1-14.3)
[2021-10-22 13:35] LABS: INR 1.36 (0.87-1.13)
[2021-10-22 13:36] LABS: Partial Thromboplastin Time 35.6 Sec. (24.2-36.6)
[2021-10-22 13:42] VITALS: BP 63/35
[2021-10-22] MEDS ORDERED: LACTATED RINGERS 1,000 ML IV ONE (14:00)
[2021-10-22] MEDS ORDERED: VASOPRESSIN 20 UNIT in SODIUM CHLORIDE 0.9% 100 ML IV SCH (14:00)
[2021-10-22] MEDS ORDERED: PHENYLEPHRINE 100 MG in SODIUM CHLORIDE 0.9% 90 ML IV SCH (14:00)
--- NOTE | 2021-10-22 14:10 | Consultation ---
History of Present Illness Consult date: 10/22/21 Requesting physician: JACOB BOOGIE Consult reason: cardiac arrest History of present illness: Patient is an 81-year-old female with a past medical history of hypertension, diabetes, hyperlipidemia, and mitral valve regurgitation who was brought to the ED in cardiac arrest last night. History obtained from documentation due to patient being intubated. Per documentation family reports that patient has been nauseous and vomiting throughout the day but denies any pain in around 6 PM in the evening collapse. EMS arrived and found patient in PEA arrest. ACLS protocol initiated patient was intubated and transported to the ED. In the ED patient was found to be in asystolic arrest ACLS was continued and patient achieved ROSC and around 5 minutes. Labs showed patient to have lactic acidosis of 8.6, elevated troponin, leukocytosis, and CXR showed bilateral pneumonia. Patient is followed by Dr. Barrera of our practice. Cardiology is consulted for cardiac arrest. Past History Past Medical History: arthritis, hypertension, other (Thyroid) Past Surgical History: Other (HYSTERECTOMY. THYROID SURGERY) Social history: no significant social history Family history: hypertension Medications and Allergies Allergies Allergy/AdvReac Type Severity Reaction Status Date / Time Penicillins AdvReac BROKE Verified 05/17/14 17:02 MOUTH OUT Sulfa (Sulfonamide AdvReac BROKE Verified 05/17/14 17:02 Antibiotics) MOUTH OUT Home Medications Medication Instructions Recorded Confirmed Last Taken Type Fluticasone [Flonase] 1 spray NS QDAY #1 bottle 08/01/14 04/25/15 05/19/15 Rx Ondansetron [Zofran Odt] 4 mg PO Q6H PRN #15 tab.rapdis 08/01/14 04/25/15 Unknown Rx Atenolol 50 mg PO DAILY 04/25/15 04/25/15 05/19/15 History Clonidine HCl 0.2 mg PO DAILY 04/25/15 04/25/15 05/19/15 History Levothyroxine 50 mg PO DAILY 04/25/15 04/25/15 05/18/15 History Pravastatin 40 mg PO DAILY 04/25/15 04/25/15 05/19/15 History Valsartan/Hydrochlorothiazide 320 mg PO DAILY 04/25/15 04/25/15 05/19/15 History Aspirin [Adult Low Dose Aspirin EC] 1 tab PO DAILY 05/19/15 05/19/15 05/19/15 History Active Meds: Active Medications Acetaminophen (Acetaminophen 325 Mg Tab) 650 mg PO Q4H PRN PRN Reason: Pain MILD(1-3)/Fever >100.5/DOUGLASS Aspirin (Aspirin Ec 81 Mg Tab) 81 mg PO DAILY MATT Last Admin: 10/22/21 09:14 Dose: 81 mg Famotidine (Famotidine 20 Mg/2 Ml Inj) 20 mg IV DAILY MATT Last Admin: 10/22/21 09:14 Dose: 20 mg Fluticasone Propionate (Fluticasone Propionate Nasal [place] 16 Gm) 50 mcg NS QDAY MATT Last Admin: 10/22/21 10:00 Dose: 50 mcg Heparin Sodium (Porcine) (Heparin 10,000 Units/10 Ml Vial) 4,000 unit IV ONCE@1300 MATT Stop: 10/22/21 15:00 Last Admin: 10/22/21 13:17 Dose: 4,000 unit Sodium Chloride (Nacl 0.9% 1000 Ml) 1,000 mls @ 100 mls/hr IV DIRECT MATT Last Admin: 10/22/21 10:49 Dose: 100 mls/hr Levofloxacin/Dextrose (Levaquin 750mg/150ml) 750 mg in 150 mls @ 100 mls/hr IV Q48H MATT; Protocol Last Admin: 10/22/21 02:58 Dose: 100 mls/hr Epinephrine 8 mg/ Sodium (Chloride) 250 mls @ 3.75 mls/hr IV TITR MATT; Protocol Last Admin: 10/22/21 12:52 Dose: 10 mcg/min, 18.75 mls/hr NORepinephrine/NS 8 MG-250 ML (Norepinephrine/Ns 8 Mg-250 Ml (Double Conc)) 8 mg in 250 mls @ 3.75 mls/hr IV TITRATE MATT; Protocol Last Titration: 10/22/21 13:25 Dose: 30 mcg/min, 56.25 mls/hr Heparin Sodium/Sodium Chloride (Heparin/ 0.45% Nacl-25,000 Unit/500 Ml) 25,000 unit in 500 mls @ 20 mls/hr IV TITRATE MATT; Protocol Last Admin: 10/22/21 13:18 Dose: 1,000 units/hr, 20 mls/hr Vasopressin 20 unit/ Sodium (Chloride) 101 mls @ 9.09 mls/hr IV TITR [facility]; Protocol Last Admin: 10/22/21 13:29 Dose: 0.03 units/min, 9.09 mls/hr Lactated Ringer's (Lactated Ringers) 1,000 mls @ 999 mls/hr IV BOLUS ONE Stop: 10/22/21 15:00 Last Admin: 10/22/21 13:57 Dose: 999 mls/hr Phenylephrine HCl 100 mg/ (Sodium Chloride) 100 mls @ 3 mls/hr IV TITR [facility]; Protocol Insulin Human Lispro (Insulin Lispro 100 Unit/Ml) 0 unit SUB-Q Q6HR [facility]; Protocol Last Admin: 10/22/21 13:29 Dose: Not Given Levothyroxine Sodium (Levothyroxine 50 Mcg Tab) 50 mcg PO DAILY@0600 [facility] Last Admin: 10/22/21 05:15 Dose: Not Given Ondansetron HCl (Ondansetron 4 Mg/2 Ml Inj) 4 mg IV Q8H PRN PRN Reason: Nausea And Vomiting Sodium Chloride (Sodium Chloride 0.9% 10 Ml Flush Syringe) 10 ml IV BID [facility] Last Admin: 10/22/21 09:14 Dose: 10 ml Sodium Chloride (Sodium Chloride 0.9% 10 Ml Flush Syringe) 10 ml IV PRN PRN PRN Reason: LINE FLUSH Tramadol HCl (Tramadol 50 Mg Tab) 50 mg PO Q6H PRN PRN Reason: Pain, Moderate (4-6) Review of Systems ROS unobtainable: due to endotracheal tube, due to mental status Physical Examination Vital Signs Pulse BP Pulse Ox 79 85/47 100 10/21/21 20:00 10/21/21 20:00 10/21/21 20:00 General appearance: other (Intubated) HEENT: Positive: Mucus Membranes Dry Neck: Positive: trachea midline Cardiac: Positive: Reg Rate and Rhythm Lungs: Positive: Ventilated Respirations Neuro: Positive: Other (Patient unresponsive) Abdomen: Positive: Soft Skin: Negative: Rash, Suspicious Lesions Extremities: Present: upper extr. pulses. Absent: edema Results 10/22/21 04:27 10/22/21 03:39 Cardiac Enzymes 10/21/21 10/22/21 Range/Units 20:26 03:39 AST 295 H 679 H (5-40) units/L Coagulation 10/21/21 10/22/21 10/22/21 Range/Units 20:26 04:27 12:30 PT 14.0 15.3 H 18.4 H (12.2-14.9) Sec. INR 0.95 1.06 1.36 H (0.87-1.13) APTT 23.6 L 35.6 (24.2-36.6) Sec. Lipids 10/21/21 Range/Units 20:26 Triglycerides 104 (2-149) mg/dL Cholesterol 178 (50-199) mg/dL HDL Cholesterol 43 (40-59) mg/dL Cholesterol/HDL Ratio 4.13 % CBC 10/21/21 10/21/21 10/22/21 Range/Units 20:26 20:26 04:27 WBC TNR 19.0 H 18.2 H RBC TNR 3.69 3.80 Hgb TNR 10.0 L 10.5 Hct TNR 30.5 30.8 Plt Count TNR 280 276 Lymph # (Auto) TNR 1.2 [place] # (Auto) TNR 1.0 H Eos # (Auto) TNR 0.0 Baso # (Auto) TNR 0.0 Comprehensive Metabolic Panel 10/21/21 10/22/21 Range/Units 20:26 03:39 Sodium 148 H 146 H (137-145) mmol/L Potassium 4.3 3.4 L D (3.6-5.0) mmol/L Chloride 101.3 104.0 (98-107) mmol/L Carbon Dioxide 18 L 24 (22-30) mmol/L BUN 15 24 H (7-17) mg/dL Creatinine 1.5 H 1.9 H (0.6-1.2) mg/dL Glucose 310 H 219 H (65-100) mg/dL Calcium 8.4 7.8 L (8.4-10.2) mg/dL AST 295 H 679 H (5-40) units/L ALT 223 H 266 H (7-56) units/L Alkaline Phosphatase 88 89 (35-129) units/L Total Protein 6.1 L 6.3 (6.3-8.2) g/dL Albumin 2.9 L 3.2 L (3.9-5) g/dL - Imaging and Cardiology Echo: report reviewed EKG: report reviewed, image reviewed EKG interpretations - Telemetry EKG Rhythm: Sinus Rhythm - EKG Sinus rhythms and dysrhythmias: sinus rhythm Myocardial infarction: anterior MD (acute or rec, lateral MD (acute or rece Assessment and Plan Patient is an 81-year-old female with a past medical history of hypertension, diabetes, hyperlipidemia, and mitral valve regurgitation who was brought to the ED in cardiac arrest last night S/p cardiac arrest STEMI Cardiogenic shock Leukocytosis Bilateral pneumonia Hypertension Diabetes Hyperlipidemia Echo09/2021 -LVEF 60 - 65%. LV systolic function is normal ,Grade I (mild) diastolic dysfunction. RV systolic function is normal, Ascending aorta dilated. Echo 10/21/2021-EF 15 to 20%. Severe hypokinesisakinesis in all queen with the exception of inferoseptal, inferior, and inferior lateral. Right ventricle is hypokinetic. Left atrium normal in size. Aortic valve leaflet calcification. Mild tricuspid regurgitation. No pericardial effusion Plan: EKG on admission sinus bradycardia with baseline artifact. Multiple premature complexes. LVH. ST elevation possibly secondary to LVH Repeat EKG this morning shows sinus rhythm 88 acute anterolateral myocardial infarct Cardiology was not informed or called this morning following EKG which showed acute MD Due to patient being nonresponsive and absent of reflexes suspect anoxic brain injury following prolonged downtime and multiple rounds of ACLS. Patient is not a candidate for intervention. Echo shows severely decreased LV function and severe hypokinesis of LV Patient currently on multiple pressors Agree with heparin drip, aspirin, statin therapy Discussed with patient's daughter who was at bedside overall poor prognosis Patient seen in conjunction with Dr. Oscar who agrees with this plan of care - Patient Problems (1) Cardiogenic shock Current Visit: Yes Status: Acute (2) Myocardial infarction Current Visit: Yes Status: Acute (3) Acute respiratory failure Current Visit: Yes Status: Acute (4) Bilateral pneumonia Current Visit: Yes Status: Acute Qualifiers: Pneumonia type: due to unspecified organism Lung location: lower lobe of lung Qualified Code(s): J18.9 - Pneumonia, unspecified organism (5) Cardiac arrest Current Visit: Yes Status: Acute (6) Hypertension Current Visit: Yes Status: Acute
[2021-10-22] MEDS ORDERED: SODIUM BICARB 8.4% 50 MEQ/50 ML SYRINGE IV ONE (14:14)
[2021-10-22] MEDS ORDERED: EPINEPHrine 1 MG/10 ML SYRINGE ONE (14:14)
--- NOTE | 2021-10-22 14:38 | Death Summary ---
Summary - Providers Consults: 10/21/21 Consult to Cardiac Rehabilitation [CONS] Routine Reason For Exam: Phase I 10/21/21 22:57 Consult to Cardiology [CONS] Routine Consulting Provider: ZENAIDA MALDONADO Reason For Exam: Cardiac arrest Consult to Physician [CONS] Routine Comment: Consulting Provider: LORENZO STREETER Physician Instructions: Reason For Exam: Cardiac arrest 10/22/21 08:04 Consult to Physician [CONS] Routine Comment: Consulting Provider: LIOR LOPEZ Physician Instructions: Reason For Exam: s/p cardiac arrest 10/22/21 08:10 Consult to Dietitian/Nutrition [CONS] Routine Physician Instructions: Reason For Exam: Reason for Consult: Write/Manage Tube Feeding Attending: JEN ANDRADE MD - summary Date of admission: 10/21/21 22:57 Date of : 10/22/21 Reason for admission: s/p cardiac arrest Significant findings: This is a 81-year-old female with DM, CA, HLD, bronchitis who presents to the hospital on 10/21 s/p cardiac arrest via EMS. Per ED documentation arrest happened 30 minutes prior to arrival of EMS. According to the family patient was complaining of nausea and vomiting since 11 AM and approximately 6 PM patient collapsed. Upon EMS arrival patient was found to be in PEA arrest and prior to arrival to the emergency department she received 2 shocks, 3 doses epinephrine and was intubated. Upon arrival to the emergency department patient was asystolic and ACLS continued approximately 5 minutes before ROSC was achieved after epinephrine and sodium bicarb. Work-up showed lactic acidosis, e levated troponin and leukocytosis and CXR showed bilateral pneumonia. Initial CT head showed no acute events. Patient was admitted to the hospitalist service s/p cardiac arrest, acute kidney injury, bilateral pneumonia, cardiac shock with consults to CCM and cardiology. This morning her epinephrine drip was changed to Levophed. Plan was to obtain repeat CT head tomorrow morning and neurology was consulted. Daughter Amaya was updated by Dr. Andrade. Unfortunately this afternoon patient had another cardiac arrest and ROSC was achieved after 1 round of ACLS and heparin drip was initiated as 0700 ECG showed STEMI. Patient unfortunately suffered another cardiac arrest this afternoon. Several attempts were made get in contact with legal next of kin ( Keshawn T at [phone]). Three adult daughters at bedside (Amaya, Myranda and Dayana) at bedside and updated by EVAN Gamboa and KAROLINE Mitchell. They agreed to change status to DNR and asked for ACLS to be aborted. Time of called by Dr. Andrade at 1418. Condolences offered to family. S/p cardiac arrest x3 STEMI Cardiogenic shock Leukocytosis Bilateral pneumonia Hypertension Hyperlipidemia h/o DM h/o CA h/o HLD h/o bronchitis
== END 2021-10-22 14:18 | DRG 208 ==
LOC: ED 19:28 → CC1 22:57
PROVIDERS: ADMIT Hospitalist; ATTEND Internal Medicine
PROC: 5A1935Z Respiratory Ventilation, Less than 24 Consecutive Hours (ICD-10-PCS; principal; 2021-10-21)
PROC: 0BH17EZ Insertion of Endotracheal Airway into Trachea, Via Natural or Artificial Opening (ICD-10-PCS; 2021-10-21)
PROC: 06HY33Z Insertion of Infusion Device into Lower Vein, Percutaneous Approach (ICD-10-PCS; 2021-10-21)
PROC: B54BZZA Ultrasonography of Right Lower Extremity Veins, Guidance (ICD-10-PCS; 2021-10-21)
PROC: 4A033R1 Measurement of Arterial Saturation, Peripheral, Percutaneous Approach (ICD-10-PCS; 2021-10-21)
PROC: 5A12012 Performance of Cardiac Output, Single, Manual (ICD-10-PCS; 2021-10-22)
DX: J18.9 Pneumonia, unspecified organism (principal); J96.00 Acute respiratory failure, unspecified whether with hypoxia or hypercapnia; I21.3 ST elevation (STEMI) myocardial infarction of unspecified site; E87.2 Acidosis; I46.9 Cardiac arrest, cause unspecified; E11.9 Type 2 diabetes mellitus without complications; I10 Essential (primary) hypertension; M19.90 Unspecified osteoarthritis, unspecified site; E78.5 Hyperlipidemia, unspecified; R57.0 Cardiogenic shock; Z88.0 Allergy status to penicillin; I25.2 Old myocardial infarction; Z79.82 Long term (current) use of aspirin; Z90.710 Acquired absence of both cervix and uterus; Z82.49 Family history of ischemic heart disease and other diseases of the circulatory system; Z88.2 Allergy status to sulfonamides
CPT/HCPCS: 36415; 70450; 71045; 74018; 74150; 80053; 80061; 81001; 82140; 82803; 82962; 83735; 84484; 85007; 85014; 85018; 85025; 85027; 85049; 85610; 85730; 86850; 86900; 86901; 87040; 87070; 87086; 87205; 93005; 93306; 94002; 94003; G0378; J2354; J3490; J7502; J7517; Q9967; C8929; J0171; J0696; J1644; J1815; J1956; J2370; J7030; J7050; J7120